=== PATIENT | male | born 1990 | race Caucasian/White ===

== ENCOUNTER → 2017-08-30 | Outpatient (CLI) | payer BC, OTHER ==
[~2017-08-30] MED LIST: SULF1TAB35 PO
--- NOTE | 2017-08-30 12:07 | Diagnostic Imaging Report ---
PROCEDURE: MRI left joint lower extremity without contrast. TECHNIQUE: Multiplanar, multisequence non contrast-enhanced MRI of the left lower extremity was accomplished. INDICATION: Chronic instability. FINDINGS: The anterior cruciate and posterior cruciate ligaments are intact. Medial collateral ligaments intact. The biceps femoris, tibial collateral and iliotibial band are intact. There is no evidence of periligamentous edema. Both the medial and lateral meniscus are grossly normal in signal intensity and morphology. There is mild tendinosis of the distal quadriceps tendon. Patellar tendon is intact. There is a small knee joint effusion. The articular cartilage in all 3 knee joint compartments is relatively well-maintained. There is some focal marrow edema in the lateral aspect of the lateral femoral condyle. This likely reflects bone contusion. There are no other focal soft tissue abnormalities. IMPRESSION: Focal marrow edema in the lateral aspect of the lateral femoral condyle likely reflecting bone contusion. Small knee joint effusion. Mild tendinosis of the distal quadriceps tendon. No other internal derangement of the knee Dictated by: Dictated on workstation # [id number]
== END ==
LOC: RAD 09:33
PROVIDERS: ATTEND Orthopaedic Surgery
DX: M25.462 Effusion, left knee (principal)
CPT/HCPCS: 73721

== ENCOUNTER → 2018-11-23 | Outpatient (CLI) | payer OTHER ==
--- NOTE | 2018-11-23 15:29 | Diagnostic Imaging Report ---
INDICATION: Injury to the right shoulder and pain. Time of exam 3:12 p.m. FINDINGS: Multiple views of the right shoulder were obtained. Glenohumeral and acromioclavicular alignment are normal. Acromiohumeral space is normal. No fracture or dislocation is seen. IMPRESSION: No acute bony abnormality is detected. Dictated by: Dictated on workstation # [id number]
== END ==
LOC: RAD 14:28
PROVIDERS: ATTEND Family Medicine
DX: S49.91XA Unspecified injury of right shoulder and upper arm, initial encounter (principal)
CPT/HCPCS: 73030